=== PATIENT | female | born 1985 | race Caucasian/White ===

== ENCOUNTER → 2020-09-26 10:34 | Outpatient (BNVA) | payer OTHER, SELFPAY | PROVIDERS: Family Provider Family Medicine; PCP Family Medicine; Visit Provider Obstetrics & Gynecology | DX: Z12.4 Encounter for screening for malignant neoplasm of cervix (principal) | CPT/HCPCS: 88175 ==

== ENCOUNTER 2024-04-05 15:45 | Emergency (ER) | payer OTHER, SELFPAY ==
--- NOTE | 2024-04-05 15:56 | W.ED.EXTPRO ---
HPI - Extremity Problem General: Chief complaint: Extremity Problem,Nontraumatic Stated complaint: Right middle finger pain Time Seen by Provider: 04/05/24 15:56 Source: patient Mode of arrival: ambulatory History of Present Illness: 39-year-old female presents emergency complaining of right third finger pain and swelling mild redness this been going on for last couple of days tender to touch. [facility], [facility] ED PFSH: Medical History Well woman exam with routine gynecological exam Surgical History H/O tubal ligation H/O section x2 Family History Family/Other Breast cancer maternal great grandmother Grandmother Heart disease maternal Family/Other Hypertension maternal uncle Denies family history of Colon cancer Ovarian cancer Diabetes Hyperlipidemia Anesthesia complication Thyroid disease Stroke Social History Smoking and tobacco/nicotine status: never used tobacco/nicotine Alcohol intake: current Alcohol intake frequency: holidays/special occasions only Alcohol type: hard liquor Substance/Drug Use: never Physical Exam Narrative: EXAM NARRATIVE: Right third finger paronychia moderate swelling localized erythema. Procedures Abscess I/D Site: hand Side (if applicable): right (Third finger) Technique: other Amount of fluid expressed (mL): 2 Irrigation: No Packing used?: none Course Vital Signs: Vital signs: Vital Signs Temperature 98.3 F 04/05/24 16:01 Pulse Rate 71 04/05/24 16:01 Respiratory Rate 17 04/05/24 16:01 Blood Pressure 135/84 04/05/24 16:01 Pulse Oximetry 100 04/05/24 16:01 Oxygen Delivery Me thod Room Air 04/05/24 16:01 MDM - Extremity (Nontraumatic) Medical Decision Making Incision and drainage paronychia. There is a lot of localized erythema we will put her on 5 days of Augmentin 875 twice daily No radiology studies performed this visit Discharge Plan Discharge Patient Disposition: Home Clinical Impression: Paronychia Condition: Stable Prescriptions: New amoxicillin-pot clavulanate 875-125 mg tablet 1 tab PO BID Qty: 10 0RF Discharge Orders: Discharge ED (Routine); Ordered 04/05/24 Ordered By: Doni Starks Referrals: Sahil Lama MD [Primary Care Provider] - Discharge Diet: Usual diet Patient Instructions: Paronychia (ED), Opioid Safety, Pain Management Coding Level of Care Code ED Observer Helper for Chanelle Pratt
[2024-04-05 16:01] VITALS: BP 135/84; PULSE 71; RESP 17; TEMP 36.8; O2SAT 100
== END 2024-04-05 16:03 | disposition home or self-care (01) ==
PROVIDERS: Emergency Provider Family Medicine; PCP Family Medicine
DX: L03.011 Cellulitis of right finger (principal)
CPT/HCPCS: 10060; 99283

== ENCOUNTER 2025-07-30 10:32 | Outpatient (CLI) | payer OTHER, SELFPAY ==
--- NOTE | 2025-07-30 10:40 | MM_ITS ---
WS: [id number] BILATERAL SCREENING DIGITAL TOMOSYNTHESIS MAMMOGRAM WITH CAD HISTORY: Z12.39 - Encounter for other screening for malignant neop... COMPARISON: None available. Bilateral CC and MLO views with tomosynthesis and synthetic mammography submitted. Computer aided detection analyzed. Breast composition: The breasts are heterogeneously dense, which may obscure small masses. No suspicious masses, microcalcifications or architectural distortion. Benign calcifications in each breast. MM/MM scr tomosynthesis [id number] IMPRESSION: BI-RADS: 2 - Benign FOLLOW UP: 1 Year Follow-up
== END 2025-07-30 10:33 | disposition home or self-care (01) ==
LOC: RAD 10:34
PROVIDERS: Visit Provider Nurse Practitioner Women's Health
DX: Z12.31 Encounter for screening mammogram for malignant neoplasm of breast (principal); R92.333 Mammographic heterogeneous density, bilateral breasts; R92.1 Mammographic calcification found on diagnostic imaging of breast
CPT/HCPCS: 77063; 77067